=== PATIENT | female | born 1940 | race Caucasian/White ===

== ENCOUNTER 2019-04-21 10:39 | Inpatient (IN) | payer MEDICARE, OTHER, MEDICAID ==
[2019-04-21 12:26] LABS: ADD MAN DIFF? NO
[2019-04-21 12:29] LABS: BASOPHIL # 0.1 10^3/ul (0.0-0.1); BASOPHILS % 0.9 % (0.0-2.0); EOSINOPHILS % 0.4 % (0.0-7.0); HEMATOCRIT 43.1 % (37.0-47.0); HEMOGLOBIN 14.4 g/dl (12.0-16.0); LYMPHOCYTES # 1.1 10^3/ul (0.8-2.9); LYMPHOCYTES % 14.3 % (15.0-51.0); MEAN CORPUSCULAR HGB CONC 33.4 g/dl (32.0-37.0); MEAN CORPUSCULAR VOLUME 86.9 fl (82.0-101.0); MEAN PLATELET VOLUME 9.5 fl (7.4-10.4); MONOCYTE # 0.5 10^3/ul (0.3-0.9); MONOCYTES % 5.8 % (0.0-11.0); NEUTROPHIL # 6.2 10^3/ul (1.6-7.5); NEUTROPHILS % 78.3 % (39.0-77.0); PLATELET COUNT 265 10^3/UL (140-415); RED BLOOD COUNT 4.96 10^6/ul (4.20-5.40); RED CELL DISTRIBUTION WIDTH 12.8 % (11.5-14.5)
[2019-04-21 12:53] LABS: ALANINE AMINOTRANSFERASE 105 IU/L (13-69); ALBUMIN 4.1 g/dl (3.3-4.9); ALBUMIN/GLOBULIN RATIO 0.95; ALKALINE PHOSPHATASE 120 IU/L (42-121); ANION GAP 10 (5-13); ASPARTATE AMINO TRANSFERASE 139 IU/L (15-46); BILIRUBIN,INDIRECT 0.5 mg/dl (0-1.1); BILIRUBIN,TOTAL 0.5 mg/dl (0.2-1.3); BLOOD UREA NITROGEN 15 mg/dl (7-20); CALCIUM 9.1 mg/dl (8.4-10.2); CARBON DIOXIDE 28 mmol/L (21-31); CHLORIDE 103 mmol/L (97-110); GLUCOSE 105 mg/dl (70-220); LIPASE 337 U/L (23-300); SODIUM 141 mmol/L (135-144); TOTAL PROTEIN 8.4 g/dl (6.1-8.1)
[2019-04-21] MEDS: SOD CHLORIDE 0.9% 1,000 ML IV (12:57)
[2019-04-21] MEDS: ONDANSETRON 4 MG INJ IV (12:57)
[2019-04-21] MEDS: morphine 4 MG/ML VIAL IV (12:58)
[2019-04-21] MEDS: FAMOTIDINE 20 MG TAB PO (12:58)
[2019-04-21 13:04] LABS: TROPONIN-I < 0.012 ng/ml (0.000-0.120)
[2019-04-21] MEDS: SOD CHLORIDE 0.9% 100 ML (13:13)
[2019-04-21] MEDS: IOHEXOL 100 ML (13:14)
[2019-04-21] MEDS ORDERED: ONDANSETRON 4 MG INJ IV (15:00)
[2019-04-21] MEDS ORDERED: ACETAMINOPHEN 325 MG TAB PO (15:00)
[2019-04-21] MEDS: AMPICILLIN/SULB 3 GM/NS (PMX) 100 ML IVPB (16:00)
[2019-04-21] MEDS ORDERED: DOCUSATE SODIUM 100 MG CAP PO (17:30)
[2019-04-21] MEDS ORDERED: NACL 0.9% 3 ML SYG IV (17:30)
[2019-04-21] MEDS ORDERED: morphine 2 MG INJ IV (17:30)
[2019-04-21] MEDS: 1/2 NS + KCL 20 MEQ 1,000 ML IV (18:21)
[2019-04-21] MEDS: hydrALAzine 20 MG INJ IV (18:22)
[2019-04-21] MEDS ORDERED: ZOLPIDEM 5 MG TAB PO (21:00)
[2019-04-22] MEDS: ACETAMINOPHEN 325 MG TAB PO (01:06)
[2019-04-22] MEDS: ONDANSETRON 4 MG INJ IV ×2 (03:16→13:15)
[2019-04-22] MEDS: 1/2 NS + KCL 20 MEQ 1,000 ML IV ×3 (03:23→12:17)
[2019-04-22 05:01] LABS: ADD MAN DIFF? NO; HAAIG REFLEX REFLEX FILED
[2019-04-22 05:16] LABS: BASOPHIL # 0.1 10^3/ul (0.0-0.1); BASOPHILS % 0.7 % (0.0-2.0); HEMATOCRIT 41.4 % (37.0-47.0); HEMOGLOBIN 13.7 g/dl (12.0-16.0); LYMPHOCYTES # 0.9 10^3/ul (0.8-2.9); LYMPHOCYTES % 9.5 % (15.0-51.0); MEAN CORPUSCULAR HEMOGLOBIN 28.8 pg (29.0-33.0); MEAN CORPUSCULAR HGB CONC 33.1 g/dl (32.0-37.0); MEAN CORPUSCULAR VOLUME 87.2 fl (82.0-101.0); MONOCYTE # 0.5 10^3/ul (0.3-0.9); MONOCYTES % 5.8 % (0.0-11.0); NEUTROPHIL # 7.5 10^3/ul (1.6-7.5); NEUTROPHILS % 83.6 % (39.0-77.0); PLATELET COUNT 259 10^3/UL (140-415); RED BLOOD COUNT 4.75 10^6/ul (4.20-5.40); RED CELL DISTRIBUTION WIDTH 13.1 % (11.5-14.5)
[2019-04-22 05:31] LABS: HEMOGLOBIN A1C 5.1 % (0-5.9)
[2019-04-22 05:45] LABS: ALANINE AMINOTRANSFERASE 85 IU/L (13-69); ALBUMIN 3.8 g/dl (3.3-4.9); ALKALINE PHOSPHATASE 106 IU/L (42-121); ANION GAP 8 (5-13); ASPARTATE AMINO TRANSFERASE 85 IU/L (15-46); BILIRUBIN,INDIRECT 0.6 mg/dl (0-1.1); BILIRUBIN,TOTAL 0.6 mg/dl (0.2-1.3); BLOOD UREA NITROGEN 11 mg/dl (7-20); CALCIUM 8.9 mg/dl (8.4-10.2); CARBON DIOXIDE 26 mmol/L (21-31); CHLORIDE 104 mmol/L (97-110); CREATININE 0.71 mg/dl (0.44-1.00); GLUCOSE 105 mg/dl (70-220); LIPASE 176 U/L (23-300); MAGNESIUM 1.7 mg/dl (1.7-2.5); PHOSPHORUS 4.2 mg/dl (2.5-4.9); POTASSIUM 4.4 mmol/L (3.5-5.1); SODIUM 138 mmol/L (135-144); TOTAL PROTEIN 7.6 g/dl (6.1-8.1)
[2019-04-22 06:07] LABS: HEPATITIS B SURFACE ANTIGEN NEGATIVE (NEGATIVE)
[2019-04-22 06:25] LABS: HEPATITIS B CORE ANTIBODY NEGATIVE (NEGATIVE); HEPATITIS C VIRAL ANTIBODY NEGATIVE (NEGATIVE)
[2019-04-22] MEDS: HYDROCODONE/APAP (5/325) TAB PO (07:17)
[2019-04-22] MEDS: hydrALAzine 20 MG INJ IV (07:21)
[2019-04-22] MEDS ORDERED: PROPOFOL 200 MG INJ (17:21)
[2019-04-22] MEDS ORDERED: CEFAZOLIN 1 GM INJ (17:21)
[2019-04-22] MEDS ORDERED: ROCURONIUM 50 MG INJ (17:21)
[2019-04-22] MEDS ORDERED: NEOSTIGMINE 3 MG/3 ML SYRINGE (17:21)
[2019-04-22] MEDS ORDERED: SUCCINYLCHOLINE CHLORIDE 100 MG/5 ML SYG IV (17:21)
[2019-04-22] MEDS ORDERED: FENTAnyl 50 MCG/ML VIAL ×2 (17:21→17:39)
[2019-04-22] MEDS ORDERED: GLYCOPYRROLATE 0.4 MG INJ (17:21)
[2019-04-22] MEDS ORDERED: SEVOFLURANE 15 MIN (17:21)
[2019-04-22] MEDS ORDERED: LIDOCAINE 2% (SDV) 5 ML INJ (17:21)
[2019-04-22] MEDS ORDERED: PHENYLephrine (100 MCG/ML) 10ML SYG (17:21)
[2019-04-22] MEDS: IOHEXOL 300MG/ML 30 ML BTL (17:46)
[2019-04-22] MEDS: BUPIVACAINE 0.5%/EPI (SDV) 30 ML INJ (17:46)
[2019-04-22] MEDS ORDERED: ONDANSETRON 4 MG INJ (17:59)
[2019-04-22] MEDS ORDERED: DEXAMETHASONE 4 MG/ML 5 ML INJ (17:59)
[2019-04-22] MEDS ORDERED: LABETALOL HCL 20MG INJ (18:27)
[2019-04-22] MEDS ORDERED: ONDANSETRON 4 MG INJ IV ×2 (18:30→19:00)
[2019-04-22] MEDS ORDERED: FENTAnyl 50 MCG/ML VIAL IV ×2 (18:30)
[2019-04-22] MEDS ORDERED: hydrALAzine 20 MG INJ IV (18:30)
[2019-04-22] MEDS ORDERED: LABETALOL HCL 20MG INJ IV (18:30)
[2019-04-22] MEDS ORDERED: HYDROmorphONE 1 MG/5 ML IV SYRINGE IV ×3 (18:30)
[2019-04-22] MEDS ORDERED: METOCLOPRAMIDE 10 MG INJ IV (19:00)
[2019-04-22] MEDS ORDERED: HYDROCODONE/APAP (5/325) TAB PO (19:00)
[2019-04-22] MEDS ORDERED: IBUPROFEN 600 MG TAB PO (19:00)
[2019-04-22] MEDS ORDERED: DIPHENHYDRAMINE 25 MG CAP PO (19:00)
[2019-04-22] MEDS ORDERED: HYDROmorphONE 0.5 MG/0.5 ML SYG IV (19:00)
[2019-04-22] MEDS ORDERED: ACETAMINOPHEN 325 MG TAB PO (19:00)
[2019-04-22] MEDS: D5W-0.45 NACL + KCL 20 MEQ 1,000 ML IV (21:26)
[2019-04-23] MEDS: 1/2 NS + KCL 20 MEQ 1,000 ML IV ×2 (01:14→08:22)
[2019-04-23 05:44] LABS: ALANINE AMINOTRANSFERASE 73 IU/L (13-69); ALBUMIN 3.5 g/dl (3.3-4.9); ALBUMIN/GLOBULIN RATIO 0.94; ALKALINE PHOSPHATASE 79 IU/L (42-121); ANION GAP 8 (5-13); ASPARTATE AMINO TRANSFERASE 76 IU/L (15-46); BILIRUBIN,INDIRECT 0.5 mg/dl (0-1.1); BILIRUBIN,TOTAL 0.5 mg/dl (0.2-1.3); BLOOD UREA NITROGEN 14 mg/dl (7-20); CALCIUM 8.5 mg/dl (8.4-10.2); CARBON DIOXIDE 23 mmol/L (21-31); CHLORIDE 107 mmol/L (97-110); CREATININE 0.81 mg/dl (0.44-1.00); GLUCOSE 194 mg/dl (70-220); LIPASE 51 U/L (23-300); POTASSIUM 4.6 mmol/L (3.5-5.1); SODIUM 138 mmol/L (135-144); TOTAL PROTEIN 7.2 g/dl (6.1-8.1)
[2019-04-23] MEDS: D5W-0.45 NACL + KCL 20 MEQ 1,000 ML IV (06:08)
== END 2019-04-23 19:00 | disposition home or self-care (01) | DRG 417 ==
LOC: E/R 10:39 → MS1 14:48
PROC: 0FT44ZZ Resection of Gallbladder, Percutaneous Endoscopic Approach (ICD-10-PCS; principal; 2019-04-22 09:30)
PROC: 0FT44ZZ Resection of Gallbladder, Percutaneous Endoscopic Approach (ICD-10-PCS; 2019-04-22 09:30)
DX: K81.0 Acute cholecystitis (principal); K85.10 Biliary acute pancreatitis without necrosis or infection; K86.2 Cyst of pancreas; M48.50XA Collapsed vertebra, not elsewhere classified, site unspecified, initial encounter for fracture; I10 Essential (primary) hypertension
CPT/HCPCS: 36415; 74300; 75635; 76705; 80053; 83036; 83690; 83735; 84100; 84484; 85025; 86704; 86709; 86803; 87340; 88304; 93005; 96374; 96375; 99285-25